=== PATIENT | male | born 1960 | race Caucasian/White ===

== ENCOUNTER 2018-01-21 12:51 | Emergency (ER) | payer OTHER ==
[~2018-01-21] VITALS: Ht 170.2 cm; Wt 68.6 kg
[2018-01-21 12:59] VITALS: TEMP 36.7; Ht 170.2 cm; Wt 68.6 kg
--- NOTE | 2018-01-21 13:38 | EMERGENCY ROOM VISIT NOTE ---
ED Visit Note First contact with patient: 13:37 CHIEF COMPLAINT: Left great toe infection HISTORY OF PRESENT ILLNESS: This 57-year-old male patient presents to the emergency department by private vehicle complaining of pain and swelling of the left great toe approximately 3 days ago. Doesn't remember any injury to the area before it got swollen and tender. He states that today he dropped a pile shingles on top of his foot causing him to have severe pain in the toe, his coworkers told him to come to the hospital and get checked out. The patient has not had a fever. There has been no discharge. The patient has tried black drawing salve and tried to drain it with a razor blade, but this just caused increased irritation. The patient's tetanus shot is not up-to-date. He is not a diabetic. He is a current everyday heavy smoker. REVIEW OF SYSTEMS: A 6 system review of systems was completed with positives and pertinent negatives listed in the HPI. ALLERGIES: No known allergies. MEDICATIONS: No current medications. PMH: No significant past medical or surgical history. SOCIAL HISTORY: Lives at home. He is a current everyday smoker.. PHYSICAL EXAM: Vital Signs: Reviewed Nurse's notes, afebrile, vital signs stable. GENERAL: Pleasant and cooperative, in no acute distress, nontoxic in appearance, well-developed, well-nourished. SKIN: There is erythema, swelling, and tenderness of the nail fold around the left great toe. There is fluctuance but no active drainage. There is no pus under the nail. There is generalized surrounding erythema and swelling of the left great toe, but there is no lymphangitic streaking up the foot. Capillary refill less than two seconds. MUSCULOSKELETAL: The patient has full range of motion and strength of the foot. Peripheral pulses 2+. ED COURSE: I examined the patient. Verbal consent was obtained to perform the procedure. The area of fluctuance of the left great toe with cleaned with chlorhexidine. A #15 blade was then used to gently lift up the cuticle to release and drain the paronychia. A moderate amount of thick white pus was expressed from the wound, and more was expressed with pressure until all of the pus was relieved. The area was thoroughly cleaned with sterile saline. The area was then dressed with bacitracin and a bandage. The patient tolerated the procedure well. Patient was provided with prescriptions for Keflex and Bactrim to treat for cellulitis, he was educated regarding these medications. Patient was educated regarding wound care, follow-up, and return precautions, he verbalized understanding. The patient was discharged home in stable condition and ambulatory. Medication Reconciliation: I attest that I have personally reviewed the patient' s current medication list. Blood pressure screening: The patient was found to have normal blood pressure on screening and does not require follow-up for repeat blood pressure check. Patient was discussed with Dr. Carpenter, who also evaluated the patient and agrees with my assessment and disposition. Current/Historical Medications Scheduled Cephalexin Monohydrate (Keflex), 500 MG PO QID Sulfa/Trimethoprim (Bactrim Ds 800MG/160MG), 1 TAB PO BID Vital Signs Date Time Temp Pulse Resp B/P (MAP) Pulse Ox O2 Delivery O2 Flow Rate FiO2 01/21/18 14:53 68 18 131/72 97 01/21/18 14:19 69 18 139/77 99 Room Air 01/21/18 12:59 36.7 66 17 118/69 98 Room Air Departure Information Impression Primary Impression: Paronychia of great toe of left foot Dispostion Home / Self-Care Condition GOOD Prescriptions Sulfa/Trimethoprim (Bactrim Ds 800MG/160MG) Tab 1 TAB PO BID for 7 Days, #14 TAB Prov: Puja Scherer CRNP 01/21/18 Cephalexin Monohydrate (KEFLEX) 500 Mg Cap 500 MG PO QID for 7 Days, #28 CAP Prov: Puja Scherer CRNP 01/21/18 Patient Instructions ED Fingernail Infec, ED Infec Skin Cellulitis, [facility] Additional Instructions DISCHARGE INSTRUCTIONS: You have been evaluated and treated in the emergency department today for your left great toe infection. You have been prescribed Keflex and Bactrim to be taken for 7 days. Both of these medications are antibiotics to help treat your toe infection. Stop these medications and contact a medical provider if you were to develop any significant adverse side effects including: wheezing, shortness of breath, passing out, vomiting, or a diffuse rash. Always take antibiotics as directed and COMPLETE the ENTIRE course regardless of the improvement of your symptoms. Soak the toe in hot salt water 4 times a day for 20-30 minutes each to help improve the infection and help the toe to heal. You may shower normally, but do not place your toe under standing water such as bathing or swimming, until the area is completely healed. Look for signs of worsening infection of the wound including: increased pain, swelling, foul discharge, streaking, or fevers/chills/feeling ill. If any of these are noticed you should return to the Emergency Department for further assessment and treatment. For pain control, you can use the following [id number] medicines (if >12 yo): - Extra strength (500mg/tab) Tylenol (acetaminophen) 1-2 tabs every 6-8 hours as needed. Do not exceed 6 tablets in a 24 hour period. Avoid taking more than 3 grams (3000 mg) of Tylenol per day. This includes any other sources of acetaminophen you may take on a regular basis. - Regular strength (200 mg/tab) Advil (ibuprofen) 1-2 tabs every 4-6 hours as needed. Do not exceed a dose of 2400 mg per day. Keep the toe covered with a clean sock at all times and wear a closed shoe to protect the area and help the toe to heal. Follow up with your PCP in 2 days for recheck, or sooner for worsening symptoms. Return to the emergency department if your symptoms worsen despite treatment course outlined above. Work Instructions Return To Work: 1 day
--- NOTE | 2018-01-21 14:18 | DIAGNOSTIC IMAGING REPORT ---
L TOE(S) MIN 2 VIEWS HISTORY: 57 years-old Male left great toe pain acute left great toe pain and swelling COMPARISON: None available TECHNIQUE: 3 views of the left great toe FINDINGS: Mild tissue swelling. Fine bony detail is partially obscured by overlying gauze material. Mild degenerative changes about the interphalangeal joints and first MTP joint. No acute fracture, dislocation or opaque foreign body. IMPRESSION: Soft tissue swelling without acute fracture. The above report was generated using voice recognition software. It may contain grammatical, syntax or spelling errors. Electronically signed by: Jason Mendez M.D. 01/21/2018 2:17 PM Dictated Date/Time: 01/21/2018 2:15 PM
--- NOTE | 2018-01-21 14:21 | EMERGENCY ROOM VISIT NOTE ---
ED Visit Note First contact with patient: 13:37 Patient was seen by our PA/FLIGHT ENGINEER MANAGER. I was involved in the patient's care and did evaluate the patient myself. I was involved in the care throughout the ER stay. Patient has a paronychia to his toe. This has been drained, he is being discharged on antibiotics. If worsening, he can return.
[2018-01-21] MEDS ORDERED: CEPH500C2 PO (14:42)
[2018-01-21] MEDS ORDERED: SULF800T23 PO (14:42)
[2018-01-21 14:53] VITALS: BP 131/72; PULSE 68; O2SAT 97
== END 2018-01-21 14:53 | disposition home or self-care (01) ==
LOC: C.EDB 12:53
DX: L03.032 Cellulitis of left toe (principal); F17.200 Nicotine dependence, unspecified, uncomplicated